=== PATIENT | male | born 2005 | race Caucasian/White ===

== ENCOUNTER 2024-10-10 03:06 | Emergency (ER) | payer SELFPAY ==
[~2024-10-10] VITALS: Ht 162.6 cm; Wt 76.5 kg
[2024-10-10 03:19] VITALS: TEMP 36.8; O2SAT 99
[2024-10-10 05:00] VITALS: BP 129/80; PULSE 63; RESP 20; O2SAT 99
[2024-10-10] MEDS: KETOROLAC 15MG/ML VIAL IM ONE (05:08)
== END 2024-10-10 05:09 | disposition home or self-care (01) ==
LOC: ER 03:06
DX: S01.01XA Laceration without foreign body of scalp, initial encounter (principal); S06.0XAA Concussion with loss of consciousness status unknown, initial encounter; Z88.8 Allergy status to other drugs, medicaments and biological substances; W22.8XXA Striking against or struck by other objects, initial encounter; Y93.89 Activity, other specified; Y92.89 Other specified places as the place of occurrence of the external cause; Y99.8 Other external cause status
CPT/HCPCS: 96372; 99283; J1885; Z7610